=== PATIENT | female | born 1945 | race Caucasian/White ===

== ENCOUNTER 2016-11-03 11:00 | Emergency (ER) | payer MEDICARE ==
[~2016-11-03] VITALS: Ht 163.8 cm; Wt 65.4 kg
[2016-11-03] MEDS ORDERED: KETOROLAC 30 MG/1 ML IM ONE (11:30)
[2016-11-03] MEDS ORDERED: KETOROLAC 30 MG/1 ML ONE (12:26)
[2016-11-03 13:41] VITALS: BP 133/82
== END 2016-11-03 12:11 | disposition home or self-care (01) ==
LOC: ED 12:05
DX: S33.5XXA Sprain of ligaments of lumbar spine, initial encounter (principal); S23.3XXA Sprain of ligaments of thoracic spine, initial encounter; S13.4XXA Sprain of ligaments of cervical spine, initial encounter; E11.9 Type 2 diabetes mellitus without complications; V49.49XA Driver injured in collision with other motor vehicles in traffic accident, initial encounter; Y93.89 Activity, other specified; Y92.410 Unspecified street and highway as the place of occurrence of the external cause; Y99.9 Unspecified external cause status
CPT/HCPCS: 72020; 72050; 72072; 72110; 73130; 96372; 99284; J1885

== ENCOUNTER 2017-03-29 10:49 | Emergency (ER) | payer MEDICARE ==
[~2017-03-29] VITALS: Ht 165.1 cm; Wt 61.9 kg
[2017-03-29 10:52] VITALS: BP 122/77
[2017-03-29] MEDS ORDERED: LIDOCAINE 1%, 20ML INFIL ONE (11:00)
[2017-03-29] MEDS ORDERED: DIPH,PERTUSS(ACELL),TET VAC/PF 0.5 ML IM-VACC ONE ×2 (11:00→11:08)
[2017-03-29] MEDS ORDERED: LIDOCAINE 1%, 20ML ONE (11:08)
[2017-03-29] MEDS ORDERED: BACITRACIN ZINC OINT 500U/GM, 0.9 GM ONE (11:54)
== END 2017-03-29 12:21 | disposition home or self-care (01) ==
LOC: ED 11:48
DX: S61.412A Laceration without foreign body of left hand, initial encounter (principal); W45.8XXA Other foreign body or object entering through skin, initial encounter; Y93.G1 Activity, food preparation and clean up; Y92.89 Other specified places as the place of occurrence of the external cause; Y99.8 Other external cause status
CPT/HCPCS: 12001; 73130; 90471; 90715; 99284; J3490

== ENCOUNTER 2017-06-18 07:59 | Emergency (ER) | payer MEDICARE ==
[~2017-06-18] VITALS: Ht 165.1 cm; Wt 62.5 kg
[2017-06-18 08:02] VITALS: BP 152/66
== END 2017-06-18 09:48 | disposition home or self-care (01) ==
LOC: ED 08:22
DX: M71.21 Synovial cyst of popliteal space [Baker], right knee (principal); M25.561 Pain in right knee
CPT/HCPCS: 99283; 99284

== ENCOUNTER 2018-04-28 09:36 | Emergency (ER) | payer MEDICARE ==
[~2018-04-28] VITALS: Ht 165.1 cm; Wt 65.0 kg
[2018-04-28 10:01] VITALS: BP 136/80
== END 2018-04-28 10:55 | disposition home or self-care (01) ==
LOC: ED 10:49
DX: L24.5 Irritant contact dermatitis due to other chemical products (principal); Z87.891 Personal history of nicotine dependence; Z90.89 Acquired absence of other organs
CPT/HCPCS: 99283

== ENCOUNTER 2018-08-31 18:05 | Emergency (ER) | payer MEDICARE, MEDICAID ==
[~2018-08-31] VITALS: Ht 165.1 cm; Wt 62.0 kg
[2018-08-31 18:07] VITALS: BP 125/88
--- NOTE | 2018-08-31 18:23 | NUR ---
Pt arrived to room [address] Mccarthy at bedside for exam. Pt here after skin biopsy. Pt states she "bled and saturated a bandaid after procedure but not bleeding anymore." Pt refused vitals. Per MD, pt to D/C now.
--- NOTE | 2018-08-31 18:44 | NUR ---
Patient/Caregiver given discharge instructions and they have confirmed that they understand the instructions. Patient ambulatory with steady gait.
== END 2018-08-31 18:45 | disposition home or self-care (01) ==
LOC: ED 18:27
DX: L76.22 Postprocedural hemorrhage of skin and subcutaneous tissue following other procedure (principal); E11.9 Type 2 diabetes mellitus without complications; Z87.891 Personal history of nicotine dependence; Z90.89 Acquired absence of other organs
CPT/HCPCS: 99282; 99283

== ENCOUNTER 2019-05-18 21:57 | Emergency (ER) | payer MEDICARE ==
[~2019-05-18] VITALS: Ht 165.1 cm; Wt 58.6 kg
[2019-05-19 01:00] VITALS: BP 131/72
== END 2019-05-19 01:02 | disposition home or self-care (01) ==
LOC: ED 23:55
DX: S60.212A Contusion of left wrist, initial encounter (principal); M79.602 Pain in left arm; E11.9 Type 2 diabetes mellitus without complications; X58.XXXA Exposure to other specified factors, initial encounter; Y93.89 Activity, other specified; Y92.009 Unspecified place in unspecified non-institutional (private) residence as the place of occurrence of the external cause; Y99.8 Other external cause status
CPT/HCPCS: 99284